=== PATIENT | male | born 2000 | race Caucasian/White ===

== ENCOUNTER 2019-02-28 14:38 | Emergency (ER) | payer MEDICAID ==
[~2019-02-28] VITALS: Ht 193 cm; Wt 69.9 kg
[2019-02-28 14:49] VITALS: Ht 193 cm; Wt 69.9 kg
[2019-02-28 16:08] LABS: microscopic required? NO
[2019-02-28 16:13] LABS: urine erythrocyte NEGATIVE (NEGATIVE)
[2019-02-28 16:16] LABS: BASOPHIL % 0.3 % (0-2); PLATELET COUNT 243 x10^3mcL (130-400); RED CELL DISTRIBUTION WIDTH 12.7 % (11.5-14.5)
[2019-02-28 16:33] LABS: AMPHETAMINE QUAL UR NONE DETECTED (See below)
[2019-02-28 16:35] LABS: CALCIUM 8.6 mg/dL (8.5-10.1); CHLORIDE SERUM 104 mmol/L (98-107); CREATININE SERUM 0.8 mg/dL (0.7-1.3); GFR1 > 60 mL/min; GLUCOSE SERUM 108 mg/dL (74-106); POTASSIUM SERUM 3.9 mmol/L (3.5-5.1); SODIUM SERUM 144 mmol/L (136-145)
[2019-02-28 16:39] LABS: ALBUMIN 4.8 g/dL (3.4-5.0); ALKALINE PHOSPHATASE 113 U/L (46-116); ALT/SGPT 15 U/L (16-63); AST/SGOT 6 U/L (15-37); BILIRUBIN TOTAL 0.77 mg/dL (0.20-1.00); CHOLESTEROL 138 mg/dL (<200); CHOLESTEROL/HDL RATIO 3.6; HDL CHOLESTEROL 38 mg/dL (40-60); LIPASE 46 IU/L (73-393); TOTAL PROTEIN, SERUM 8.1 g/dL (6.4-8.2); TRIGLYCERIDES 73 mg/dL (<150)
[2019-02-28 16:47] LABS: T3 TOTAL 0.97 ng/mL
[2019-02-28 17:15] LABS: FREE T4 1.25 ng/dL (0.76-1.46); FREE THYROXINE INDEX 3.4 ug/dL (1.4-4.5); T4(THYROXINE) 8.7 ug/dL (4.7-13.3)
[2019-02-28 18:44] VITALS: BP 119/66
== END 2019-02-28 18:44 | disposition home or self-care (01) ==
LOC: ED 14:38
PROVIDERS: Specialist
DX: E86.0 Dehydration (principal); R00.2 Palpitations; F41.9 Anxiety disorder, unspecified
CPT/HCPCS: 83880; 84439; J7030; Q0092